=== PATIENT | male | born 1985 | race Caucasian/White ===

== ENCOUNTER 2017-09-22 16:42 | Emergency (ER) | payer SELFPAY ==
[2017-09-22 16:51] VITALS: BP 138/58; PULSE 111; TEMP 97.8; BMI 27.4
[2017-09-22] MEDS ORDERED: KETOROLAC TROMETHAMINE 30 MG/1 ML VIAL ONE ×2 (16:52→22:33)
[2017-09-22] MEDS ORDERED: ONDANSETRON 4 MG/2 ML VIAL ONE (16:53)
[2017-09-22] MEDS ORDERED: KETOROLAC TROMETHAMINE 30 MG/1 ML VIAL IVPUSH ONE ×2 (16:54→21:56)
[2017-09-22] MEDS ORDERED: ONDANSETRON 4 MG/2 ML VIAL IVPUSH ONE (16:54)
[2017-09-22] MEDS ORDERED: SODIUM CHLORIDE 0.9% 500 ML INFUS.BAG IV STA (16:56)
[2017-09-22 17:04] LABS: BASO % 0.7 % (0-2.0); EOS % 1.9 % (0-4.5); HEMATOCRIT 44.4 % (35.4-49); LYMPH % 33.9 % (8-40); MCH 29.1 pg (25.7-33.7); MCHC 33.8 g/dl (32.0-35.9); MEAN CELL VOLUME 86.2 fl (80-96); MEAN PLT VOLUME 8.1 fl (7.5-11.1); MONO % 7.6 % (3.8-10.2); NEUT % 55.9 % (42.8-82.8); PLATELET COUNT 342 K/MM3 (134-434); RBC 5.15 M/mm3 (4.00-5.60); RDW 13.9 % (11.9-15.9); WHITE BLOOD COUNT 10.4 K/mm3 (4.0-10.0)
[2017-09-22 17:39] LABS: ALBUMIN 4.6 g/dl (3.4-5.0); ANION GAP 12 (8-16); BILIRUBIN,TOTAL 0.6 mg/dL (0.2-1.0); BLOOD UREA NITROGEN 12 mg/dL (7-18); CALCIUM 8.9 mg/dL (8.5-10.1); CHLORIDE 107 mmol/L (98-107); CO2 20 mmol/L (21-32); CREATININE 0.8 mg/dL (0.7-1.3); GLUCOSE,RANDOM 100 mg/dL (74-106); POTASSIUM 4.2 mmol/L (3.5-5.1); SGOT/AST 17 U/L (15-37); SGPT/ALT 26 U/L (12-78); SODIUM 139 mmol/L (136-145)
[2017-09-22 17:40] LABS: ALK PHOS 103 U/L (45-117)
[2017-09-22] MEDS ORDERED: morphine CARPU-JECT 4 MG/1 ML DISP.SYRIN IVPUSH ONE (18:05)
[2017-09-22] MEDS ORDERED: MORPHINE SULFATE 10 MG/1 ML *VIAL ONE (18:06)
--- NOTE | 2017-09-22 18:25 | PDOC ---
History of Present Illness - General History Source: Patient - History of Present Illness Initial Comments: 09/22/17 22:18 32 y/o male presented to ED c/o severe rt flank pain that started approximately 4 days ago but became intolerable today. Pt reports history of kidney stone in the past, todays pain is similar to that pain. Pt denies fever, c/o nausea , no chest pain, no sob, , pt did notice some blood in urine today Timing/Duration: getting worse (4 days), other Severity: severe <Mayela Shaw - Last Filed: 09/22/17 22:32> <Gracie Mendoza - Last Filed: 09/22/17 23:04> - General Chief Complaint: Pain, Acute Stated Complaint: PAIN Time Seen by Provider: 09/22/17 16:54 Past History - Past Medical History COPD: No GI Disorders: Yes Kidney Stones: Yes - Surgical History Abdominal Surgery: Yes (HERNIA REPAIR) - Suicide/Smoking/Psychosocial Hx Smoking History: Never smoked Have you smoked in the past 12 months: No Information on smoking cessation initiated: No Hx Alcohol Use: No Drug/Substance Use Hx: No Substance Use Type: Marijuana <Mayela Shaw - Last Filed: 09/22/17 22:32> <Gracie Mendoza - Last Filed: 09/22/17 23:04> - Past Medical History Allergies/Adverse Reactions: Allergies Allergy/AdvReac Type Severity Reaction Status Date / Time No Known Allergies Allergy Unverified 09/22/17 16:48 Home Medications: Ambulatory Orders NK [No Known Home Medication] 09/22/17 *Physical Exam - Vital Signs Last Vital Signs Temp Pulse Resp BP Pulse Ox 97.8 F 111 H 20 138/58 97 09/22/17 16:49 09/22/17 16:49 09/22/17 16:49 09/22/17 16:49 09/22/17 16:49 - Physical Exam General Appearance: Yes: Severe Distress HEENT: positive: Normal Voice Neck: positive: Supple Respiratory/Chest: positive: Lungs Clear Cardiovascular: positive: Tachycardia Gastrointestinal/Abdominal: positive: Flat, Soft, Other (pt with small amount of drainage noted from umbilicus since hernia sx approximtely 6 yrs agao) Musculoskeletal: positive: CVA Tenderness (R) Integumentary: positive: Jaundice, Diaphoresis Neurologic: positive: Fully Oriented, Alert, Normal Mood/Affect <Mayela Shaw - Last Filed: 09/22/17 22:32> - Vital Signs Last Vital Signs Temp Pulse Resp BP Pulse Ox 97.8 F 111 H 20 138/58 97 09/22/17 16:49 09/22/17 16:49 09/22/17 16:49 09/22/17 16:49 09/22/17 16:49 <Gracie Mendoza - Last Filed: 09/22/17 23:04> ED Treatment Course - LABORATORY CBC & Chemistry Diagram: 09/22/17 16:58 09/22/17 16:58 - ADDITIONAL ORDERS Additional order review: Laboratory Results 09/22/17 16:58 Sodium 139 Potassium 4.2 Chloride 107 Carbon Dioxide 20 L Anion Gap 12 BUN 12 Creatinine 0.8 Creat Clearance w eGFR > 60 Random Glucose 100 Calcium 8.9 Total Bilirubin 0.6 AST 17 ALT 26 Alkaline Phosphatase 103 Total Protein 8.0 Albumin 4.6 09/22/17 16:58 RBC 5.15 MCV 86.2 MCHC 33.8 RDW 13.9 MPV 8.1 Neutrophils % 55.9 Lymphocytes % 33.9 Monocytes % 7.6 Eosinophils % 1.9 Basophils % 0.7 - RADIOLOGY Radiology Studies Ordered: Category Date Time Status SPIRAL- RENAL-STONE CT [CT] Stat CT Scan 09/22/17 16:55 Taken - Medications Given in the ED: ED Medications Discontinued Medications Generic Name Dose Route Start Last Admin Trade Name Freq PRN Reason Stop Dose Admin Ketorolac Tromethamine 30 mg 09/22/17 16:54 09/22/17 16:59 Toradol Injection - IVPUSH 09/22/17 16:55 30 mg ONCE ONE Administration Morphine Sulfate 4 mg 09/22/17 18:05 09/22/17 18:15 Morphine Injection - IVPUSH 09/22/17 18:06 4 mg ONCE ONE Administration Ondansetron HCl 4 mg 09/22/17 16:54 09/22/17 16:59 Zofran Injection IVPUSH 09/22/17 16:55 4 mg ONCE ONE Administration Sodium Chloride 1,000 ml 09/22/17 16:56 09/22/17 16:59 Normal Saline - IV 09/22/17 16:57 1,000 ml ONCE STA Administration <Mayela Shaw - Last Filed: 09/22/17 22:32> - LABORATORY CBC & Chemistry Diagram: 09/22/17 16:58 09/22/17 16:58 - ADDITIONAL ORDERS Additional order review: Laboratory Results 09/22/17 16:58 Sodium 139 Potassium 4.2 Chloride 107 Carbon Dioxide 20 L Anion Gap 12 BUN 12 Creatinine 0.8 Creat Clearance w eGFR > 60 Random Glucose 100 Calcium 8.9 Total Bilirubin 0.6 AST 17 ALT 26 Alkaline Phosphatase 103 Total Protein 8.0 Albumin 4.6 09/22/17 16:58 RBC 5.15 MCV 86.2 MCHC 33.8 RDW 13.9 MPV 8.1 Neutrophils % 55.9 Lymphocytes % 33.9 Monocytes % 7.6 Eosinophils % 1.9 Basophils % 0.7 - Medications Given in the ED: ED Medications Discontinued Medications Generic Name Dose Route Start Last Admin Trade Name Freq PRN Reason Stop Dose Admin Ketorolac Tromethamine 30 mg 09/22/17 16:54 09/22/17 16:59 Toradol Injection - IVPUSH 09/22/17 16:55 30 mg ONCE ONE Administration Morphine Sulfate 4 mg 09/22/17 18:05 09/22/17 18:15 Morphine Injection - IVPUSH 09/22/17 18:06 4 mg ONCE ONE Administration Ondansetron HCl 4 mg 09/22/17 16:54 09/22/17 16:59 Zofran Injection IVPUSH 09/22/17 16:55 4 mg ONCE ONE Administration Sodium Chloride 1,000 ml 09/22/17 16:56 09/22/17 16:59 Normal Saline - IV 09/22/17 16:57 1,000 ml ONCE STA Administration Tamsulosin HCl 0.4 mg 09/22/17 19:01 09/22/17 19:08 Flomax - PO 09/22/17 19:02 0.4 mg ONCE ONE Administration <Gracie Mendoza - Last Filed: 09/22/17 23:04> Medical Decision Making - Medical Decision Making 09/22/17 19:36 A/P Pt with signs and symptoms suggestive of a new rt kidney stone, Pt was seen immediately upon arrival to ed due to the severity of his pain /10 with diaphoresis and crying in agony. Iv inserted, pt received toradol,zofran, IV fluid, and spiral catscan using renal calculi ordered. Pt initially felt better with toradol but pain returned and IV morphine ordered. CT results reviewed reavling 4mm stone and draining wound from umbilcus cultured. 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 Case was endorsed to oncoming physician to reevaluate for final disposition, and reassess if pain was controlled. Case endorsed to Dr. Mendoza to f/u ua, reevaluate for final disposition, pt with 4mm kidney stone noted on CT, pt receiving iv fluid and ordered one dose of flomax 09/22/17 22:24 <Mayela Shaw - Last Filed: 09/22/17 22:32> - Medical Decision Making 09/22/17 20:21 Patient Name: ROMIE TINOCO PRELIMINARY REPORT FROM [facility] EXAM: CT abdomen pelvis without contrast DATE: 2017-09-22 17:26:26 IMAGES: 534 HISTORY: Right flank pain FINDINGS: Liver, spleen, pancreas, adrenals, gallbladder, kidneys, bowel, appendix, aorta , bones \T\ soft tissues show no definite acute abnormality, except as noted below. IMPRESSION: 4 mm calculus is seen at right UPJ image 73 with mild hydronephrosis. Small bilateral nephrolithiasis is seen. This CT scan was performed with one or more of the following dose optimization techniques: iterative reconstruction, automatic exposure control, and/or manual adjustment of mAs and kVp according to the patient's size. THIS DOCUMENT HAS BEEN ELECTRONICALLY SIGNED <Gracie Mendoza - Last Filed: 09/22/17 23:04> *DC/Admit/Observation/Transfer <Mayela Shaw - Last Filed: 09/22/17 22:32> - Discharge Dispostion Admit: No <Gracie Mendoza - Last Filed: 09/22/17 23:04> Diagnosis at time of Disposition: Ureteropelvic junction calculus, Renal colic on right side - Discharge Dispostion Disposition: HOME Condition at time of disposition: Stable - Referrals Referrals: Rodri Carey MD [Staff Physician] - - Patient Instructions Printed Discharge Instructions: Kidney Stones -- Adult
[2017-09-22] MEDS ORDERED: TAMSULOSIN HCL 0.4 MG CAP.ER.24H (FP) PO ONE (19:01)
[2017-09-22] MEDS ORDERED: TAMSULOSIN HCL 0.4 MG CAP.ER.24H (FP) ONE (19:05)
[2017-09-22 20:30] LABS: URINE APPEARANCE CLOUDY; URINE BILIRUBIN NEGATIVE (NEGATIVE); URINE BLOOD 3+ (NEGATIVE); URINE COLOR YELLOW; URINE GLUCOSE (UA) NEGATIVE (NEGATIVE); URINE KETONE TRACE (NEGATIVE); URINE LEUK ESTERASE NEGATIVE (NEGATIVE); URINE NITRITE NEGATIVE (NEGATIVE); URINE UROBILINOGEN NEGATIVE mg/dL (0.2-1.0)
[2017-09-22 20:37] LABS: URINE PROTEIN 1+ (NEGATIVE)
[2017-09-22 20:38] LABS: URINE MUCUS RARE
[2017-09-22] MEDS ORDERED: SODIUM CHLORIDE 0.9% 500 ML INFUS.BAG IV ONE (21:56)
== END 2017-09-22 23:11 | disposition home or self-care (01) ==
LOC: JER 16:42
PROC: 3E0333Z Introduction of Anti-inflammatory into Peripheral Vein, Percutaneous Approach (ICD-10-PCS; principal; 2017-09-22)
PROC: 3E0333Z Introduction of Anti-inflammatory into Peripheral Vein, Percutaneous Approach (ICD-10-PCS; 2017-09-22)
PROC: 3E033NZ Introduction of Analgesics, Hypnotics, Sedatives into Peripheral Vein, Percutaneous Approach (ICD-10-PCS; 2017-09-22)
PROC: 3E033GC Introduction of Other Therapeutic Substance into Peripheral Vein, Percutaneous Approach (ICD-10-PCS; 2017-09-22)
DX: N20.0 Calculus of kidney (principal); Z87.442 Personal history of urinary calculi
CPT/HCPCS: 36415; 74176; 80053; 81003; 81015; 85025; 87070; 87205; 99283-25

== ENCOUNTER 2017-09-26 03:17 | Emergency (ER) | payer SELFPAY ==
[2017-09-26 03:25] VITALS: BP 135/94; PULSE 94; TEMP 98.7; BMI 25.1
[2017-09-26] MEDS ORDERED: KETOROLAC TROMETHAMINE 30 MG/1 ML VIAL IVPUSH ONE (03:39)
[2017-09-26] MEDS ORDERED: SODIUM CHLORIDE 1,000 ML IV STA (03:39)
[2017-09-26] MEDS ORDERED: KETOROLAC TROMETHAMINE 30 MG/1 ML VIAL ONE (03:47)
[2017-09-26 03:58] LABS: EOS % 2.6 % (0-4.5); HEMOGLOBIN 15.4 GM/dL (11.7-16.9); LYMPH % 36.3 % (8-40); MCH 29.5 pg (25.7-33.7); MCHC 34.2 g/dl (32.0-35.9); MEAN CELL VOLUME 86.3 fl (80-96); MEAN PLT VOLUME 7.9 fl (7.5-11.1); MONO % 10.8 % (3.8-10.2); NEUT % 49.3 % (42.8-82.8); PLATELET COUNT 350 K/MM3 (134-434); RBC 5.21 M/mm3 (4.00-5.60); RDW 13.6 % (11.9-15.9); WHITE BLOOD COUNT 7.6 K/mm3 (4.0-10.0)
[2017-09-26 04:23] LABS: ALBUMIN 4.3 g/dl (3.4-5.0); ANION GAP 10 (8-16); BILIRUBIN,TOTAL 0.4 mg/dL (0.2-1.0); BLOOD UREA NITROGEN 13 mg/dL (7-18); CALCIUM 8.5 mg/dL (8.5-10.1); CHLORIDE 108 mmol/L (98-107); CO2 24 mmol/L (21-32); CREATININE 0.6 mg/dL (0.7-1.3); GLUCOSE,RANDOM 88 mg/dL (74-106); POTASSIUM 3.9 mmol/L (3.5-5.1); SGOT/AST 24 U/L (15-37); SGPT/ALT 34 U/L (12-78); SODIUM 142 mmol/L (136-145); TOT PROT 7.6 g/dl (6.4-8.2)
[2017-09-26 04:24] LABS: ALK PHOS 98 U/L (45-117)
[2017-09-26] MEDS ORDERED: TAMSULOSIN HCL 0.4 MG CAP.ER.24H (FP) PO ONE (04:24)
--- NOTE | 2017-09-26 04:26 | PDOC ---
History of Present Illness - General Chief Complaint: Pain, Acute Stated Complaint: KIDNEY STONES Time Seen by Provider: 09/26/17 03:29 History Source: Patient Exam Limitations: No Limitations - History of Present Illness Initial Comments: CHIEF COMPLAINT: 32 y/o afebrile male with PMH kidney stones c/o inability to urinate because of a kidney stone. HISTORY OF PRESENT ILLNESS: The patient states he was seen here on Sunday, had blood work and a Cat scan and was diagnosed with kidney stones. He states he feels much better but yesterday began having a very difficult time urinating. He states he thinks the stone is almost out but when he had a kidney stone a few years ago he was given flomax but this time he wasn't. He thinks he just needs flomax. He denies f/c, n/v/d, CP, SOB, abd pain, flank pain, back pain. Vital signs on arrival are within normal limits. REVIEW OF SYSTEMS: GENERAL/CONSTITUTIONAL: No fever/chills. No weakness. No weight change. GASTROINTESTINAL: No abd pain, flank pain, nausea, vomiting, diarrhea. GENITOURINARY: +inability to urinate. MUSCULOSKELETAL: No joint or muscle swelling or pain. No neck or back pain. SKIN: No rash or easy bruising. NEUROLOGIC: No headache, vertigo, loss of consciousness, or loss of sensation. PHYSICAL EXAM: GENERAL: The patient is awake, alert, and fully oriented, in no acute distress. He is well appearing and ambulatory. ABDOMEN: Soft, non-distended, non-tender even to deep palpation, no hepatomegaly or splenomegaly, no masses. BACK: No CVA TTP b/l. EXTREMITIES: Normal range of motion, no edema. NEUROLOGICAL: Normal speech, normal gait. CN II-XII grossly intact. SKIN: Warm, dry, normal turgor, no rashes or lesions noted. Past History - Past Medical History Allergies/Adverse Reactions: Allergies Allergy/AdvReac Type Severity Reaction Status Date / Time No Known Allergies Allergy Verified 09/26/17 03:23 Home Medications: Ambulatory Orders Ibuprofen [Motrin -] 600 mg PO TID #30 tablet 09/22/17 Tamsulosin HCl [Flomax] 0.4 mg PO DAILY #7 cap.er.24h 09/26/17 COPD: No GI Disorders: Yes Kidney Stones: Yes - Surgical History Abdominal Surgery: Yes (HERNIA REPAIR) - Suicide/Smoking/Psychosocial Hx Smoking History: Current some day smoker Have you smoked in the past 12 months: No Number of Cigarettes Smoked Daily: 0 Information on smoking cessation initiated: Yes Hx Alcohol Use: No Drug/Substance Use Hx: Yes ([facility]) Substance Use Type: Marijuana *Physical Exam - Vital Signs Last Vital Signs Temp Pulse Resp BP Pulse Ox 98.7 F 94 H 14 135/94 100 09/26/17 03:23 09/26/17 03:23 09/26/17 03:23 09/26/17 03:23 09/26/17 03:23 ED Treatment Course - LABORATORY CBC & Chemistry Diagram: 09/26/17 03:46 09/26/17 03:46 Medical Decision Making - Medical Decision Making A/P: 32 y/o male with inability to urinate 3 days after being diagnosed with kidney stones. Plan is as follows: 1. Labs 2. UA 3. Flomax Labs unremarkable. Patient states he feels much better after flowmax and is able to urinate now. Informed him an Rx for flomax was sent to his pharmacy on 09/22. 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 instructed him to return to the ER with any worsening or concerning symptoms. The patient verbalizes understanding of all instructions, has no further questions and is awaiting discharge. *DC/Admit/Observation/Transfer Diagnosis at time of Disposition: Urinary (tract) obstruction - Discharge Dispostion Disposition: HOME Condition at time of disposition: Improved - Prescriptions Prescriptions: Tamsulosin HCl [Flomax] 0.4 mg PO DAILY #7 cap.er.24h - Referrals - Patient Instructions Printed Discharge Instructions: DI for Kidney Stones Additional Instructions: Discharge Instructions: -A prescription for Flomax was sent to your pharmacy on 09/22/17. Please pick it up and start taking -Drink plenty of water -Return to the ER with any worsening or concerning symptoms. - Post Discharge Activity
[2017-09-26] MEDS ORDERED: TAMSULOSIN HCL 0.4 MG CAP.ER.24H (FP) ONE (04:28)
== END 2017-09-26 05:33 | disposition home or self-care (01) ==
LOC: JER 03:17
PROC: 3E0333Z Introduction of Anti-inflammatory into Peripheral Vein, Percutaneous Approach (ICD-10-PCS; principal; 2017-09-26)
DX: N13.8 Other obstructive and reflux uropathy (principal); N20.0 Calculus of kidney; Z87.442 Personal history of urinary calculi; F17.210 Nicotine dependence, cigarettes, uncomplicated
CPT/HCPCS: 36415; 80053; 85025; 99282-25; J7030

== ENCOUNTER 2018-07-06 12:06 | Emergency (ER) | payer SELFPAY ==
[2018-07-06 12:11] VITALS: BP 130/85; PULSE 88; TEMP 97.9; BMI 23.6
--- NOTE | 2018-07-06 13:13 | PDOC ---
History of Present Illness - General Chief Complaint: Eye Problem Stated Complaint: REDNESS AND PAIN TO EYE Time Seen by Provider: 07/06/18 12:46 History Source: Patient Exam Limitations: No Limitations - History of Present Illness Initial Comments: 07/06/18 13:18 33 y/o male with no past medical history presents to the emergency room with complaints of worsening right lower eyelid swelling and pain. Patient states has been applying hot soaks to the area promoting healing. Timing/Duration: constant, getting worse Severity: mild Associated Symptoms: reports: other Past History - Travel Traveled outside of the country in the last 30 days: No Close contact w/someone who was outside of country & ill: No - Past Medical History Allergies/Adverse Reactions: Allergies Allergy/AdvReac Type Severity Reaction Status Date / Time No Known Allergies Allergy Verified 07/06/18 12:10 Home Medications: Ambulatory Orders Erythromycin 0.5% Eye Ointment [Erythromycin 0.5% Eye Ointment -] 1 applic OP BID #1 tube 07/06/18 COPD: No GI Disorders: Yes Kidney Stones: Yes - Surgical History Abdominal Surgery: Yes (HERNIA REPAIR) - Suicide/Smoking/Psychosocial Hx Smoking History: Current every day smoker Have you smoked in the past 12 months: No Number of Cigarettes Smoked Daily: 2 Information on smoking cessation initiated: No Hx Alcohol Use: No Drug/Substance Use Hx: Yes Substance Use Type: Marijuana Patient Lives Alone: No Lives with/in: spouse/SO Review of Systems - Review of Systems Able to Perform ROS?: No Constitutional: No: Symptoms Reported HEENTM: Yes: Eye Pain, Other Integumentary: Yes: Erythema, Lumps *Physical Exam - Vital Signs Last Vital Signs Temp Pulse Resp BP Pulse Ox 97.9 F 88 18 130/85 99 07/06/18 12:08 07/06/18 12:08 07/06/18 12:08 07/06/18 12:08 07/06/18 12:08 - Physical Exam General Appearance: Yes: Nourished, Appropriately Dressed. No: Apparent Distress HEENT: positive: EOMI, LADONNA, Other (noted 1.5 x 1.5 cm erythematous raised hordeolum to lower right eyelid draining purulent fluid from inner aspect of eyelid) Integumentary: positive: Warm Neurologic: positive: Motor Strength 5/5 (ambulatory) Moderate Sedation - Procedure Monitoring Vital Signs: Procedure Monitoring Vital Signs Temperature 97.9 F 07/06/18 12:08 Pulse Rate 88 07/06/18 12:08 Respiratory Rate 18 07/06/18 12:08 Blood Pressure 130/85 07/06/18 12:08 O2 Sat by Pulse Oximetry (%) 99 07/06/18 12:08 Medical Decision Making - Medical Decision Making 07/06/18 13:37 CC: + rt lower hordeolum Exam: draining hordeolum Plan: able to express small amt of purulent drainage by milking. Will prescribe erythromycin oitment 07/06/18 13:43 *DC/Admit/Observation/Transfer Diagnosis at time of Disposition: Hordeolum externum (stye) - Discharge Dispostion Disposition: HOME Condition at time of disposition: Good - Referrals - Patient Instructions Printed Discharge Instructions: DI for Hordeolum Additional Instructions: Please continue to apply warm soaks to the affected area and use ointment as prescribed for the next 5 days. If symptoms do not improve and worsen please return to the ED. - Post Discharge Activity Forms/Work/School Notes: Back to Work
== END 2018-07-06 13:15 | disposition home or self-care (01) ==
LOC: JERFT 12:06
CPT/HCPCS: 99281-25

== ENCOUNTER 2018-09-12 13:58 | Emergency (ER) | payer SELFPAY ==
[2018-09-12 14:07] VITALS: BP 112/69; PULSE 89; TEMP 98; BMI 22.1
[2018-09-12] MEDS ORDERED: KETOROLAC TROMETHAMINE 30 MG/1 ML VIAL IVPUSH ONE (14:26)
[2018-09-12] MEDS ORDERED: TAMSULOSIN HCL 0.4 MG CAP PO ONE (14:27)
[2018-09-12] MEDS ORDERED: SODIUM CHLORIDE 0.9% 1000 ML INFUS.BAG IV ONE (14:27)
[2018-09-12] MEDS ORDERED: TAMSULOSIN HCL 0.4 MG CAP ONE (14:43)
[2018-09-12] MEDS ORDERED: KETOROLAC TROMETHAMINE 30 MG/1 ML VIAL ONE (14:43)
[2018-09-12 14:51] LABS: BASO % 0.3 % (0-2.0); EOS % 1.1 % (0-4.5); HEMATOCRIT 43.2 % (35.4-49); HEMOGLOBIN 14.8 GM/dL (11.7-16.9); LYMPH % 15.6 % (8-40); MCH 29.9 pg (25.7-33.7); MCHC 34.1 g/dl (32.0-35.9); MEAN CELL VOLUME 87.6 fl (80-96); MEAN PLT VOLUME 7.9 fl (7.5-11.1); MONO % 7.2 % (3.8-10.2); NEUT % 75.8 % (42.8-82.8); PLATELET COUNT 335 K/MM3 (134-434); RBC 4.93 M/mm3 (4.00-5.60); RDW 13.6 % (11.9-15.9); WHITE BLOOD COUNT 15.5 K/mm3 (4.0-10.0)
--- NOTE | 2018-09-12 14:53 | PDOC ---
History of Present Illness - General History Source: Patient Exam Limitations: No Limitations - History of Present Illness Initial Comments: 09/12/18 14:49 The patient is a 33M with a PMH of nephrolithiasis (last one 5 months ago, spontaneously passed) who presents with sudden onset, sharp, L flank pain radiating to his groin and painful urination since noon. The patient states that this feels like his prior kidney stones. He does not have a PCP or urologist. He denies discharge, testicular pain. <Andrew Lazo - Last Filed: 09/12/18 18:00> <Krysten Sarkar - Last Filed: 09/12/18 18:08> - General Chief Complaint: Urinary Problem Stated Complaint: PAINFULL URINE Time Seen by Provider: 09/12/18 14:23 Past History - Past Medical History COPD: No GI Disorders: Yes Kidney Stones: Yes - Surgical History Abdominal Surgery: Yes (HERNIA REPAIR) - Suicide/Smoking/Psychosocial Hx Smoking History: Current some day smoker Have you smoked in the past 12 months: No Number of Cigarettes Smoked Daily: 2 Information on smoking cessation initiated: No Hx Alcohol Use: No Drug/Substance Use Hx: Yes Substance Use Type: Marijuana <Andrew Lazo - Last Filed: 09/12/18 18:00> <Krysten Sarkar - Last Filed: 09/12/18 18:08> - Past Medical History Allergies/Adverse Reactions: Allergies Allergy/AdvReac Type Severity Reaction Status Date / Time No Known Allergies Allergy Verified 07/06/18 12:10 Review of Systems - Review of Systems Able to Perform ROS?: Yes Comments:: 09/12/18 14:52 GENERAL/CONSTITUTIONAL: No fever or chills. No weakness. HEAD, EYES, EARS, NOSE AND THROAT: No change in vision. No ear pain or discharge. No sore throat. CARDIOVASCULAR: No chest pain, palpitations, or lightheadedness. RESPIRATORY: No cough, wheezing, shortness of breath, or hemoptysis. GASTROINTESTINAL: No nausea, vomiting, diarrhea, constipation, or abdominal pain. GENITOURINARY: Positive for flank, dysuria, hematuria. No testicular pain, dysuria, frequency, hematuria, or change in urination. MUSCULOSKELETAL: No joint or muscle swelling or pain. No neck or back pain. SKIN: No rash or lesions. NEUROLOGIC: No headache, numbness, tingling, focal weakness, loss of consciousness, or change in strength/sensation. Is the patient limited Mexican proficient: No <Linus Lazoony - Last Filed: 09/12/18 18:00> *Physical Exam - Vital Signs Last Vital Signs Temp Pulse Resp BP Pulse Ox 98 F 89 20 112/69 98 09/12/18 14:06 09/12/18 14:06 09/12/18 14:06 09/12/18 14:06 09/12/18 14:06 - Physical Exam Comments: 09/12/18 15:22 GENERAL: Well developed, well nourished. Awake and alert. No acute distress. HEENT: Normocephalic, atraumatic. Hearing grossly normal. Moist mucous membranes. PERRLA, EOMI. No conjunctival pallor. Sclera are non-icteric. NECK: Supple. Full ROM. No JVD. CARDIOVASCULAR: Regular rate and rhythm. No murmurs, rubs, or gallops. PULMONARY: No evidence of respiratory distress. Lungs clear to auscultation bilaterally. No wheezing, rales or rhonchi. ABDOMINAL: Soft. TTP over LLQ. Non-distended. No rebound or guarding. GENITOURINARY: L CVA tenderness. MUSCULOSKELETAL: Normal range of motion at all joints. No bony deformities or tenderness. EXTREMITIES: No cyanosis. No clubbing. No edema. No calf tenderness or swelling. SKIN: Warm and dry. Normal capillary refill. No rashes. No jaundice. NEUROLOGICAL: Alert, awake, appropriate. Cranial nerves 2-12 grossly intact. Normal speech. Gait is normal without ataxia. PSYCHIATRIC: Cooperative. Good eye contact. Appropriate mood and affect. <Andrew Lazo - Last Filed: 09/12/18 18:00> - Vital Signs Last Vital Signs Temp Pulse Resp BP Pulse Ox 98 F 89 20 112/69 98 09/12/18 14:06 09/12/18 14:06 09/12/18 14:06 09/12/18 14:06 09/12/18 14:06 <Krysten Sarkar - Last Filed: 09/12/18 18:08> Moderate Sedation - Procedure Monitoring Vital Signs: Procedure Monitoring Vital Signs Temperature 98 F 09/12/18 14:06 Pulse Rate 89 09/12/18 14:06 Respiratory Rate 20 09/12/18 14:06 Blood Pressure 112/69 09/12/18 14:06 O2 Sat by Pulse Oximetry (%) 98 09/12/18 14:06 <Andrew Lazo - Last Filed: 09/12/18 18:00> - Procedure Monitoring Vital Signs: Procedure Monitoring Vital Signs Temperature 98 F 09/12/18 14:06 Pulse Rate 89 09/12/18 14:06 Respiratory Rate 20 09/12/18 14:06 Blood Pressure 112/69 09/12/18 14:06 O2 Sat by Pulse Oximetry (%) 98 09/12/18 14:06 <Krysten Sarkar - Last Filed: 09/12/18 18:08> ED Treatment Course - LABORATORY CBC & Chemistry Diagram: 09/12/18 14:35 09/12/18 14:35 <Andrew Lazo - Last Filed: 09/12/18 18:00> - LABORATORY CBC & Chemistry Diagram: 09/12/18 14:35 09/12/18 14:35 - ADDITIONAL ORDERS Additional order review: Laboratory Results 09/12/18 09/12/18 14:45 14:35 Sodium 136 Potassium 3.9 Chloride 106 Carbon Dioxide 25 Anion Gap 6 L BUN 17 Creatinine 0.7 Creat Clearance w eGFR > 60 Random Glucose 93 Calcium 8.5 Total Bilirubin 0.8 AST 13 L ALT 35 Alkaline Phosphatase 100 Total Protein 7.6 Albumin 4.1 Urine Color Ltyellow Urine Appearance Slcloudy Urine pH 6.0 D Ur Specific [place] 1.023 Urine Protein 1+ H Urine Glucose (UA) Negative Urine Ketones Trace H Urine Blood 3+ H Urine Nitrite Negative Urine Bilirubin Negative Urine Urobilinogen Negative Ur Leukocyte Esterase Negative Urine WBC (Auto) 5 Urine RBC (Auto) 1456 Urine Mucus Rare 09/12/18 14:35 RBC 4.93 MCV 87.6 MCHC 34.1 RDW 13.6 MPV 7.9 Neutrophils % 75.8 D Lymphocytes % 15.6 D Monocytes % 7.2 Eosinophils % 1.1 Basophils % 0.3 - Medications Given in the ED: ED Medications Discontinued Medications Generic Name Dose Route Start Last Admin Trade Name Freq PRN Reason Stop Dose Admin Ketorolac Tromethamine 30 mg 09/12/18 14:26 09/12/18 14:45 Toradol Injection - IVPUSH 09/12/18 14:27 30 mg ONCE ONE Administration Sodium Chloride 1,000 ml 09/12/18 14:27 09/12/18 14:45 Normal Saline - IV 09/12/18 14:28 1,000 ml ONCE ONE Administration Tamsulosin HCl 0.4 mg 09/12/18 14:27 09/12/18 14:45 Flomax - PO 09/12/18 14:28 0.4 mg ONCE ONE Administration <Krysten Sarkar - Last Filed: 09/12/18 18:08> Medical Decision Making - Medical Decision Making 09/12/18 15:23 The patient is a 33M with a PMH of nephrolithiasis (w/ no PCP and no urologist) who presents to the ER with complaints of inability to urinate and L flank pain , concerning for repeat nephrolithiasis. Exam correlates w/ pt's story and pt's feeling like this is the same pain. Pt denies testicular tenderness. Pending UA and labs. 09/12/18 15:35 CBC shows mild leukocytosis, likely reactive. CMP shows normal Cr. UA indicates hematuria. Will U/S to r/o hydro. 09/12/18 18:00 US shows mild hydro w/ 0.5cm kidney stone. Will d/c with urology f/u. <Andrew Lazo - Last Filed: 09/12/18 18:00> *DC/Admit/Observation/Transfer - Discharge Dispostion Decision to Admit order: No <Andrew Lazo - Last Filed: 09/12/18 18:00> <Krysten Sarkar - Last Filed: 09/12/18 18:08> Diagnosis at time of Disposition: Nephrolithiasis - Discharge Dispostion Disposition: HOME Condition at time of disposition: Stable - Prescriptions Prescriptions: Tamsulosin HCl [Flomax] 0.4 mg PO DAILY #14 capsule - Referrals Referrals: [facility] [place] [facility] [place] [Provider Group] Bry Alatorre MD [Staff Physician] - Al Denton MD [Staff Physician] - Socrates Suarez MD [Staff Physician] - José Miguel Randhawa MD [Staff Physician] - - Patient Instructions Printed Discharge Instructions: Kidney Stones -- Adult Additional Instructions: Please follow up with your primary care physician in 2-3 days. Also follow up with the urologist within the week. Try to catch the stone with the catcher. Please return to the ER if you have any signs or symptoms of chest pain, shortness of breath, uncontrollable fever, chills, nausea, vomiting, numbness, tingling, or weakness in any part of your body, changes in vision, or slurred speech. Please take your medications as prescribed. Drink plenty of water/fluids, avoid caffeine or alcohol Strain all urine for the next 1-2 days and save any stone for analysis Ibuprofen/naproxen/acetaminophen as needed for [id number] pain. Use Motrin (also called Ibuprofen or Advil) 400 mg every 6 hours as needed for pain. If you have any stomach discomfort while taking Motrin, you can use TUMS to help. Return to ER if you experience persistent pain/vomiting/fever/dehydration, difficulty urinating or inability to tolerate oral intake. Follow-up with your primary doctor within the next 2-3 days. Urologist follow up this week, referral given as well. (we will give you a list of urologists, but make sure they accept your insurance). Please bring your labs and imaging with you to your appointment.
[2018-09-12 15:01] LABS: URINE APPEARANCE SLCLOUDY; URINE BILIRUBIN NEGATIVE (<2.0 mg/dL); URINE COLOR LTYELLOW; URINE GLUCOSE (UA) NEGATIVE (NEGATIVE); URINE KETONE TRACE (NEGATIVE); URINE LEUK ESTERASE NEGATIVE (NEGATIVE); URINE NITRITE NEGATIVE (NEGATIVE); URINE PROTEIN 1+ (NEGATIVE); URINE UROBILINOGEN NEGATIVE mg/dL (0.2-1.0)
[2018-09-12 15:16] LABS: URINE MUCUS RARE
--- NOTE | 2018-09-12 15:18 | PDOC ---
Attending Attestation - Medical Decision Making Documentation prepared by JUAN Madsen, acting as medical physics professor for Krysten Sarkar MD. 09/12/18 16:19 <Arabella Mcneal - Last Filed: 09/12/18 16:19> - Resident Resident Name: Andrew Lazo - ED Attending Attestation I have performed the following: I have examined & evaluated the patient, The case was reviewed & discussed with the resident, I agree w/resident's findings & plan - HPI HPI: 09/12/18 15:17 33M with a PMH of nephrolithiasis (last one 5 months ago, spontaneously passed) who presents with sudden onset, sharp, L flank pain radiating to his groin and painful urination since noon. The patient states that this feels like his prior kidney stones. - Physicial Exam PE: 09/12/18 18:09 NAD, well appearing, PERRL, EOMI, MMM, nl conjunctiva, anicteric; neck supple. lungs clear, RRR, abdomen soft nontender. no CVAT. CARD x4, No peripheral edema. normal color for ethnicity, WWP. - Medical Decision Making I, Krysten Sarkar MD, attest that this document has been prepared under my direction and personally reviewed by me in its entirety. I further attest, that it accurately reflects all work, treatment, procedures and medical decision -making performed by me. See HPI for details DDx. renal colic, UTI, electrolyte/metabolic derangements. sx feels very similar to prior symptomatic kidney stone. no lower quad pain, doubt appy or diverticulitis. no right lower or left lower quad pain or tenderness. pain resolved here after toradol Vital signs reviewed, wnl. no fever; nontoxic appearing, doubt systemic involvement or infection. Prior notes reviewed, including admissions, discharges and consultations. laboratory results and imaging reviewed, basic labs and lytes wnl, notable leukocytosis 15K, but no fever, nontoxic appearing, likely reactive from his earlier pain. normal Cr. UA_+RBCs. hematuria c/w stone passage. no infection ED course - renal sono with no hydronephrosis, left renal stone visualized - likely stone passage. - outpatient urology referrals given given recurrent sx. Clinically the patient presents with symptomatic ureterolithiasis (kidney stones ). IV pain medications, antiemetics, and IV fluids were given. US report as above. The patient's labs were significant for hematuria, mild WBC ct. With pain medication the patient improved significantly. The patient is referred to the on-call urologist and additional urologists for follow up and is discharged with otc analgesia for pain control, Flomax, and given the following return precautions: Fever > 100.5, pain not controlled with meds, worsening AP and inability to [place] PO, vomiting or any other concerns and to strain the urine 09/12/18 18:10 09/12/18 18:11 09/12/18 18:12 <Krysten Sarkar - Last Filed: 09/12/18 18:12>
[2018-09-12 15:33] LABS: ALBUMIN 4.1 g/dl (3.4-5.0); ALK PHOS 100 U/L (45-117); ANION GAP 6 MMOL/L (8-16); BILIRUBIN,TOTAL 0.8 mg/dL (0.2-1); BLOOD UREA NITROGEN 17 mg/dL (7-18); CALCIUM 8.5 mg/dL (8.5-10.1); CHLORIDE 106 mmol/L (98-107); CO2 25 mmol/L (21-32); CREATININE 0.7 mg/dL (0.55-1.3); GLUCOSE,RANDOM 93 mg/dL (74-106); POTASSIUM 3.9 mmol/L (3.5-5.1); SGOT/AST 13 U/L (15-37); SGPT/ALT 35 U/L (13-61); SODIUM 136 mmol/L (136-145); TOT PROT 7.6 g/dl (6.4-8.2)
== END 2018-09-12 18:22 | disposition home or self-care (01) ==
LOC: JER 13:58
PROC: 3E0333Z Introduction of Anti-inflammatory into Peripheral Vein, Percutaneous Approach (ICD-10-PCS; principal; 2018-09-12)
DX: N13.2 Hydronephrosis with renal and ureteral calculous obstruction (principal); Z87.442 Personal history of urinary calculi
CPT/HCPCS: 36415; 76775-TC; 80053; 81003; 81015; 85025; 99281-25; J7030

== ENCOUNTER 2021-06-18 09:29 | Emergency (ER) | payer SELFPAY ==
[2021-06-18 10:00] VITALS: BP 127/82; PULSE 82; TEMP 98.2; BMI 24.3
[2021-06-18] MEDS ORDERED: ACETAMINOPHEN 1000 MG/100 ML VIAL IVPB ONE (10:47)
[2021-06-18] MEDS ORDERED: SODIUM CHLORIDE 0.9% 500 ML INFUS.BAG IV ONE (10:48)
[2021-06-18] MEDS ORDERED: ACETAMINOPHEN INJECTION 100 ML IVPB ONE (11:08)
[2021-06-18 11:57] LABS: BASO % 0.7 % (0-2.0); EOS % 0.3 % (0-4.5); HEMATOCRIT 45.6 % (35.4-49); HEMOGLOBIN 15.5 GM/dL (11.7-16.9); LYMPH % 16.1 % (8-40); MCH 30.3 pg (25.7-33.7); MEAN CELL VOLUME 89.1 fl (80-96); MONO % 4.4 % (3.8-10.2); NEUT % 78.5 % (42.8-82.8); PLATELET COUNT 398 10^3/uL (134-434); RBC 5.12 M/mm3 (4.00-5.60); RDW 13.4 % (11.9-15.9); WHITE BLOOD COUNT 9.5 K/mm3 (4.0-10.0)
[2021-06-18 12:03] LABS: INR 1.05 (0.83-1.09); PROTHROMBIN TIME (PATIENT) 12.3 SEC (9.7-13.0)
[2021-06-18 12:06] LABS: ACTIVATED PTT 38.1 SECONDS (25.2-36.5)
[2021-06-18 12:27] LABS: BLOOD UREA NITROGEN 9.1 mg/dL (7-18); CALCIUM 9.5 mg/dL (8.5-10.1)
[2021-06-18 12:28] LABS: ALBUMIN 4.1 g/dl (3.4-5.0)
[2021-06-18 12:31] LABS: CREATININE 0.8 mg/dL (0.55-1.3)
[2021-06-18 12:32] LABS: BILIRUBIN,TOTAL 0.6 mg/dL (0.2-1)
[2021-06-18] MEDS ORDERED: morphine CARPU-JECT 4 MG/1 ML DISP.SYRIN IVPUSH ONE (12:38)
[2021-06-18] MEDS ORDERED: morphine SULFATE 4 MG/ML VIAL ONE (12:39)
[2021-06-18] MEDS ORDERED: KETOROLAC TROMETHAMINE 15 MG/ML VIAL IVPUSH ONE (14:30)
[2021-06-18] MEDS ORDERED: ACETAMINOPHEN 500 MG TABLET (FP) PO ONE (14:30)
[2021-06-18] MEDS ORDERED: ACETAMINOPHEN 325 MG TABLET (FP) ONE (15:04)
[2021-06-18] MEDS ORDERED: KETOROLAC TROMETHAMINE 15 MG/ML VIAL ONE (15:04)
== END 2021-06-18 15:53 | disposition home or self-care (01) ==
LOC: JER 09:29
PROC: 3E0333Z Introduction of Anti-inflammatory into Peripheral Vein, Percutaneous Approach (ICD-10-PCS; principal; 2021-06-18)
PROC: 3E0333Z Introduction of Anti-inflammatory into Peripheral Vein, Percutaneous Approach (ICD-10-PCS; 2021-06-18)
PROC: 3E033NZ Introduction of Analgesics, Hypnotics, Sedatives into Peripheral Vein, Percutaneous Approach (ICD-10-PCS; 2021-06-18)
DX: R10.33 Periumbilical pain (principal)
CPT/HCPCS: 36415; 74177-TC; 80053; 83605; 83690; 85025; 85610; 85730; 86850; 86900; 86901; 93005; 93010; 99285-25; C9803; J0131; U0003; U0005